=== PATIENT | female | born 1980 | race Caucasian/White ===

== ENCOUNTER 2023-12-31 02:01 | Emergency (ER) | payer BC, SELFPAY ==
[2023-12-31 02:09] VITALS: BP 136/96; PULSE 82; TEMP 36.8; O2SAT 99; BMI 22.3
[2023-12-31] MEDS: AMOXICILLIN 500 MG CAPSULE PO (02:52)
[2023-12-31] MEDS: HYDROCODONE/ACET 5-325 MG TABLET 2 TAB PO (02:52)
[2023-12-31] MEDS: BENZOCAINE 30 ML, lidocaine HCL 15 ML MM (02:52)
--- NOTE | 2023-12-31 04:37 | ED_ITS ---
HPI - Dental/Oral General Chief complaint: Dental/Oral Stated complaint: DENTAL PAIN Time Seen by Provider: 12/31/23 02:04 Source: patient Mode of arrival: walk-in Limitations: no limitations History of Present Illness HPI Narrative: This 43-year-old female with a history of periodontal disease presents for evaluation of a dental infection. The patient states that she often gets a bump in her gum adjacent to teeth numbers 6 and 7. For the past 24 hours she has had a bump in this area that is now spread up into her upper gumline beneath her nose on the right. She has not had a fever. She does not have a dentist. The patient has severe periodontal disease with most of her teeth being decayed to the gumline. She is not having a difficulty breathing or swallowing. There is no oral swelling. She states that when she gets an abscess in her mouth she typically pops it with a needle and it drains on its own but at this time the pain has become severe. She has a very small abscess between teeth numbers 6 and 7 in the buccal mucosa. Related Data Home Medications ?Medication ?Instructions ?Recorded ?Confirmed No Known Home Medications 12/31/23 12/31/23 Allergies Allergy/AdvReac Type Severity Reaction Status Date / Time No Known Drug Allergies Allergy Verified 12/31/23 02:09 Review of Systems ROS Status of ROS 10 or more systems reviewed and unremark able except as noted in history and below Exam Narrative Exam Narrative: Vital signs and Nursing Notes reviewed: Patient is afebrile with a normal pulse, blood pressure is mildly elevated at 136/96, she is not hypoxic with pulse ox of 99% on room air General: Awake, alert, oriented, thin uncomfortable tearful female, no respiratory distress HEENT: Normocephalic atraumatic, patient's teeth are diffusely decayed to the gumline. There is a small less than 0.25 cm indurated abscess area between teeth numbers 6 and 7 in the mucosa with associated gingival erythema and induration. There is no sign of necrotizing gingivitis. There is no swelling of the tongue, uvula or pharyngeal soft tissues Chest: Lungs are clear to auscultation with good air entry, there is no wheezing rhonchi or rales appreciated no accessory muscle use, patient is speaking in complete sentences-no chest wall tenderness to palpation CVS: Regular rate and rhythm S1-S2, no murmurs rubs or gallops, pulses are brisk and equal bilaterally Extremities: Moving all extremities, no lower extremity tenderness or swelling noted, negative Homans' sign, pulses are brisk and equal bilaterally Skin: Normal in appearance without rash,pallor, petechiae or purpura Neuro: No focal deficits Constitutional Vital Signs, click to edit/add: Last Vital Signs Temp 98.3 F 12/31/23 02:09 Pulse 82 12/31/23 02:09 Resp 16 12/31/23 02:09 BP 136/96 H 12/31/23 02:09 Pulse Ox 99 12/31/23 02:09 O2 Del Method Room Air 12/31/23 02:09 Course Vital Signs Vital signs: Vital Signs Temperature 98.3 F 12/31/23 02:09 Pulse Rate 82 12/31/23 02:09 Respiratory Rate 16 12/31/23 02:09 Blood Pressure 136/96 H 12/31/23 02:09 Pulse Oximetry 99 12/31/23 02:09 Oxygen Delivery Method Room Air 12/31/23 02:09 Temperature 98.3 F 12/31/23 02:09 Pulse Rate 82 12/31/23 02:09 Respiratory Rate 16 12/31/23 02:09 Blood Pressure 136/96 H 12/31/23 02:09 Pulse Oximetry 99 12/31/23 02:09 Oxygen Delivery Method Room Air 12/31/23 02:09 MDM - Dental/Oral MDM Narrative Medical decision making narrative: This 43L female with a history of severe periodontal disease who is not cur rently seeing a dentist presents for evaluation of pain and swelling in her maxilla with adjacent swelling into the mucosa of the nasal labial region on the right. She has a small abscess adjacent to teeth numbers 6 and 7. This did not appear to be large enough for me to open and drain. She was encouraged to use teabags to help organize the abscess and was medicated with oral amoxicillin, dental analgesia and given [place] and Motrin for pain. She was given a list of local dentist however I encouraged her to seek the advice of a oral surgeon as she likely needs to have all of her teeth removed and to get dentures in order to prevent severe infection in the future. She is otherwise hemodynamically stable for discharge. Discharge Plan Discharge Chief Complaint: Dental/Oral Clinical Impression: Dental abscess, Periodontal disease Patient Disposition: Home, Self-Care Time of Disposition Decision: 02:44 Condition: Good Prescriptions / Home Meds: No Action No Known Home Medications Print Language: Romanian Instructions: Dental Abscess (ED), Periodontal Disease (DC) Referrals: Physician,Non-Staff, MD [Primary Care Provider] - 1 week Discharge Date/Time: 12/31/23 03:05
== END 2023-12-31 03:05 | disposition home or self-care (01) ==
PROVIDERS: Emergency Provider Emergency Medicine
DX: K05.219 Aggressive periodontitis, localized, unspecified severity (principal)
CPT/HCPCS: 99283